=== PATIENT | male | born 1950 | race Caucasian/White ===

== ENCOUNTER 2023-09-05 09:31 | Outpatient (CLI) | payer MEDICARE, SELFPAY ==
--- NOTE | 2023-09-05 10:52 | W.ANESCHARGE ---
Anesthesia Charges Start Date/Time Anesthesia Start Date: 09/05/23 Anesthesia Start Time: 10:40 Stop Date/Time Anesthesia Stop Date: 09/05/23 Anesthesia Stop Time: 11:13 Summary Extremes of Age - Over 70 or under 1: MDA
--- NOTE | 2023-09-05 11:17 | W.ANESCHARGE ---
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
== END 2023-09-05 09:32 | disposition home or self-care (01) ==
LOC: OP CLINIC 09:34
PROVIDERS: PCP Surgery; Visit Provider Internal Medicine Gastroenterology
DX: Z12.11 Encounter for screening for malignant neoplasm of colon (principal); K63.5 Polyp of colon; K62.1 Rectal polyp; Z86.010 Personal history of colon polyps
CPT/HCPCS: 00811; 45385; 88305; 99100; J2704